=== PATIENT | female | born 1975 | race Caucasian/White ===

== ENCOUNTER 2016-05-31 13:18 | Emergency (ER) | payer BC ==
[~2016-05-31] VITALS: Ht 175.3 cm; Wt 65.8 kg
[2016-05-31 13:22] VITALS: BP 124/71
[2016-05-31] MEDS ORDERED: ACETAMINOPHEN 325 MG TABLET PO ONE (13:30)
[2016-05-31] MEDS ORDERED: ACETAMINOPHEN ES 500 MG TABLET ONE (13:32)
== END 2016-05-31 14:31 | disposition home or self-care (01) ==
LOC: ER 13:20
DX: S61.215A Laceration without foreign body of left ring finger without damage to nail, initial encounter (principal); Z88.0 Allergy status to penicillin; W27.8XXA Contact with other nonpowered hand tool, initial encounter; Y93.89 Activity, other specified; Y92.89 Other specified places as the place of occurrence of the external cause; Y99.9 Unspecified external cause status
CPT/HCPCS: 73120; 99284; A4606; Z7610